=== PATIENT | male | born 1980 | race African-American/Black ===

== ENCOUNTER 2020-12-06 18:21 | Emergency (ER) | payer OTHER ==
[~2020-12-06] VITALS: Ht 188 cm; Wt 130.6 kg
[2020-12-06 19:37] LABS: Basophils # (auto) 0.1 10 ^3/uL (0-0.2); Basophils % (auto) 1.3 % (0.0-2.0); Eosinophils # (auto) 0 10 ^3/uL (0-0.8); Eosinophils % (auto) 0.5 % (0.0-7.0); Hematocrit 37.6 % (41.0-53.0); Lymphocytes # (auto) 2.2 10 ^3/uL (0.4-5.4); Lymphocytes % (auto) 36.5 % (10.0-50.0); Mean Corpuscular Hemoglobin 29.5 pg (28.0-32.0); Mean Corpuscular Hgb Conc. 34.6 g/dL (32.0-36.0); Mean Corpuscular Volume 85.3 fL (80.0-100.0); Monocytes # (auto) 0.8 10 ^3/uL (0-1.3); Monocytes % (auto) 13.7 % (0.0-12.0); Neutrophils # (auto) 2.9 10 ^3/uL (1.6-8.6); Nucleated Red Blood Cells % 0.1 %; Platelet Count (auto) 364 10^3/uL (140-450); Red Blood Cells 4.41 10^6/uL (4.5-5.90)
[2020-12-06 19:58] LABS: Albumin 3.7 g/dL (3.4-5.0); BUN/Creatinine Ratio 9.3; Calcium 8.7 mg/dL (8.5-10.1); Potassium 3.8 mmol/L (3.5-5.1)
[2020-12-06 20:00] LABS: Bilirubin, Total 0.4 mg/dL (0.2-1.0); Total Protein 8.7 g/dL (6.4-8.2)
[2020-12-06 21:06] VITALS: BP 154/96
== END 2020-12-06 21:06 | disposition home or self-care (01) ==
LOC: ER 18:23
DX: J06.9 Acute upper respiratory infection, unspecified (principal); Z20.822 Contact with and (suspected) exposure to COVID-19
CPT/HCPCS: 36415; 71046; 80053; 83605; 83735; 85025; 87040; 87426; 93005

== ENCOUNTER 2021-01-22 07:43 | Emergency (ER) | payer OTHER ==
[~2021-01-22] VITALS: Ht 188 cm; Wt 130.6 kg
[2021-01-22 07:44] VITALS: BP 158/100
== END 2021-01-22 10:39 | disposition home or self-care (01) ==
LOC: ER 07:43
DX: U07.1 COVID-19 (principal); J06.9 Acute upper respiratory infection, unspecified
CPT/HCPCS: 36415; 71045; 87426